=== PATIENT | male | born 1960 | race Caucasian/White ===

== ENCOUNTER 2016-11-13 08:17 | Day surgery (SDC) | payer OTHER ==
[~2016-11-13 08:17] MED LIST: ASPIRIN325 MG PO; ATENOLOL100 MG PO; CINNAMON500 MG PO; DEPAKOTE125 MG PO; DOXYCYCLINE40 MG PO; FISH OIL PO; GABAPENTIN800 MG PO; HYZAAR1 TA1 PO; L-ARGININE500 M1 PO; LANTUS SOL100 UNITS/ SC; LOSARTAN POTAS100 MG PO; METFORMIN HCL1000 MG PO; MULTIPLE VITAMIN PO; SIMVASTATIN40 MG PO; STOOL SOFTENER240 MG PO; TERAZOSIN HCL5 MG PO; TRAMADOL HCL E150 MG PO; [UNRECOGNIZED DRUG - OTHER] PO; [UNRECOGNIZED DRUG - OTHER] PO
[2016-11-13] MEDS ORDERED: NORCO1 TA1 PO (10:56)
--- NOTE | 2016-11-13 10:57 | Provider's Discharge Care Plan ---
Problem, Goal, Plan Problem List 1. S/P split thickness skin graft
--- NOTE | 2016-11-13 10:57 | Provider's Discharge Care Plan ---
Problem, Goal, Plan Problem List 1. S/P split thickness skin graft
--- NOTE | 2016-11-13 11:27 | OPERATIVE REPORT ---
DATE OF SURGERY: 11/13/2016 SURGEON: Anoop Reid MD PREOPERATIVE DIAGNOSIS: 1. Nonhealing surgical wound of right leg POSTOPERATIVE DIAGNOSIS: 1. Nonhealing surgical wound of right leg PROCEDURE PERFORMED: 1. Split-thickness skin graft to right leg ANESTHESIA: Total IV general and local. INDICATIONS: The patient is a 56-year-old man with a nonhealed wound in the right lateral calf. 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 The donor site broke down and is now an open granulating wound. SURGICAL TECHNIQUE: The patient was taken to the operating room, where a total IV general was administered and the leg prepped and draped in the usual sterile fashion. The donor site was selected on the left upper thigh by patient request since he lies on his right side to sleep. The wound was measured and maximum dimensions were 5 x 13 cm. A section of skin was marked out on the left upper thigh and the appropriate template selected. The compressed air driven dermatome was used to harvest a 5 x 13 cm section of skin at a 0.18 setting. The skin graft came off in 1 nice piece. It was placed on a 1.5:1 mesh carrier with the dermal side up and meshed at that ratio. The recipient site was prepped with a scalpel blade by paring off the outer fibrinous layer and leaving a nice granulating red bleeding bed. Pressure was held on this until hemostasis was complete. The graft was set in place. The patient requested that no adan were to be used due to previous bad experience. Instead, 4-0 nylon was used to sew the edges to avoid premature movement. One area where the skin had grown in further was trimmed away and used to fill in the very top end of the recipient site. All portions of the graft were used. Once fixated and hemostatic, a single layer of Adaptic gauze was placed. A layer of plain gauze moistened in a mixture of local anesthetic and mineral oil was placed over the top of this and then held in place with a sterile Kerlix gauze. The dressings were reinforced with a compressive wrap of sterile Felix bandage. The donor site was treated with a membrane dressing and the patient left in good condition. No intraoperative complications were encountered.
== END 2016-11-13 12:26 | disposition home or self-care (01) ==
LOC: OR SRH 08:17 → OB SRH 08:26
PROVIDERS: Surgery
PROC: 0HBJXZZ Excision of Left Upper Leg Skin, External Approach (ICD-10-PCS; principal; 2016-11-13 10:15)
PROC: 0HRKX74 Replacement of Right Lower Leg Skin with Autologous Tissue Substitute, Partial Thickness, External Approach (ICD-10-PCS; principal; 2016-11-13 10:15)
DX: T81.89XA Other complications of procedures, not elsewhere classified, initial encounter (principal); L97.211 Non-pressure chronic ulcer of right calf limited to breakdown of skin; E11.9 Type 2 diabetes mellitus without complications; Z79.4 Long term (current) use of insulin; I10 Essential (primary) hypertension